=== PATIENT | female | born 1995 | race Caucasian/White ===

== ENCOUNTER 2023-09-19 17:02 | Emergency (ER) | payer MEDICAID ==
[2023-09-19 17:17] VITALS: RESP 18; TEMP 97.8
[2023-09-19] MEDS ORDERED: Sodium Chloride 0.9% 1000 ML 1,000 ML ONE (17:59)
[2023-09-19] MEDS: Sodium Chloride 0.9% 1000 ML 1,000 ML IV STA (18:00)
[2023-09-19 18:06] LABS: Absolute Neutrophil Ct (ANC) 6.53 x10^3/uL (1.4-6.9); BASOPHIL % 0.5 % (0.0-0.4); Basophil (Absolute #) 0.05 x10^3/uL (0-0.4); Eosinophil % 0.8 % (0.00-5.0); Eosinophil (Absolute #) 0.08 x10^3/uL (0-0.5); Hematocrit 38.1 % (35-47); Hemoglobin 12.9 g/dL (12.0-16.0); IMMATURE GRAN # 0.03 x10^3u/L (0.00-0.03); IMMATURE GRAN % 0.3 % (0.00-0.4); Lymphocyte (Absolute #) 2.11 x10^3/uL (1.0-4.6); Lymphocytes % 22.3 % (24.0-44.0); Mean Cell Volume 85.8 fL (78-100); Mean Corpuscular Hemoglobin 29.1 pg (26-32); Mean Corpuscular Hgb Concent. 33.9 g/dL (32-36); Mean Platelet Volume 10.2 fL (7.5-11.0); Monocyte (Absolute #) 0.65 x10^3/uL (0.0-1.3); Monocytes % 6.9 % (0.0-12.0); Neutrophil % 69.2 % (36.0-66.0); Platelet Count 254 x10^3/uL (150-450); Red Blood Count 4.44 x10^6/uL (4.1-5.4); Red Cell Distribution Width 11.7 % (11.5-14.0); White Blood Count 9.5 x10^3/uL (4.0-10.5)
[2023-09-19 18:13] LABS: Appearance Clear (Clear); Bacteria None Seen /HPF (None Seen); Bilirubin Negative (Negative); Blood Negative (Negative); Epithelial Cells Few /HPF (None Seen); Glucose, Urine Negative (Negative); Hyaline Casts NONE SEEN /LPF (0-2); Ketones Negative (Negative); Leukocyte Esterase Trace (Negative); Nitrite Negative (Negative); Ph 6.5 (4.6-8.0); Protein,Urine Dip Negative (Negative); RBC 0-2 /HPF (0-5); Urobilinogen 0.2 mg/dL (0.2)
[2023-09-19 18:14] LABS: ADD URINE CULTURE? NO (NO)
[2023-09-19 18:25] LABS: ANION GAP 10.3 MEQ/L (5-15); BILIRUBIN,TOTAL 0.7 mg/dL (0.2-1.3); Creatinine 1 0.62 mg/dL (0.52-1.04); EST GLOMERULAR FILTRATION RATE 125.9 ML/MIN; Potassium 3.4 mmol/L (3.5-5.1); Total Protein 7.9 g/dL (6.3-8.2)
--- NOTE | 2023-09-19 18:38 | ERPHSYRPT ---
- History of Present Illness Time Seen by Provider: 09/19/23 17:25 Historian: patient Exam Limitations: no limitations Patient Subjective Stated Complaint: pt here because she thinks she is dehydrated, co some nausea no vomiting, loose stools yesterday. able to eat and drink, Triage Nursing Assessment: pt alert, walked in, resp easy, skin w/d/p. moves all ext well, no edema noted, abd soft/flat. Physician History: Patient is a 27-year-old white female who presents with a complaint of generalized weakness for a few days. She is concerned that she would might be dehydrated she has had some nausea and reported to the physician but not the nurse -, some vomiting and diarrhea. Timing/Duration: day(s) (3) Activities at Onset: none Quality: cramping Abdominal Pain Onset Location: generalized abdomen Pain Radiation: no radiation Severity of Pain-Max: mild Severity of Pain-Current: none Modifying Factors: Improves With: nothing Associated Symptoms: diarrhea, nausea, vomiting Allergies/Adverse Reactions: No Known Drug Allergies Allergy (Unverified 09/19/23 17:17) Hx Influenza Vaccination/Date Given: No Hx Pneumococcal Vaccination/Date Given: No Immunizations Up to Date: Yes Travel Risk - International Travel Have you traveled outside of the country in past 3 weeks: No - Emerging Infectious Disease Are you exhibiting symptoms associated with any current EIDs: No - Review of Systems Constitutional: No Fever, No Chills Eyes: No Symptoms Ears, Nose, & Throat: No Symptoms Respiratory: No Cough, No Dyspnea Cardiac: No Chest Pain, No Edema, No Syncope Abdominal/Gastrointestinal: Nausea, Vomiting, Diarrhea, No Abdominal Pain Genitourinary Symptoms: No Dysuria Musculoskeletal: No Back Pain, No Neck Pain Skin: No Rash Neurological: No Dizziness, No Focal Weakness, No Sensory Changes Psychological: No Symptoms Endocrine: No Symptoms All Other Systems: Reviewed and Negative - Past Medical History Pertinent Past Medical History: No - Past Surgical History Past Surgical History: No - Female History Hx Last Menstrual Period: week ago Hx Now: No - Social History Smoking Status: Never smoker Exposure to second hand smoke: Yes (occ) Drug Use: marijuana - Nursing Vital Signs Nursing Vital Signs: Initial Vital Signs Temperature 97.8 F 09/19/23 17:16 Pulse Rate 90 09/19/23 17:16 Respiratory Rate 18 09/19/23 17:16 Blood Pressure 129/82 09/19/23 17:16 O2 Sat by Pulse Oximetry 98 09/19/23 17:16 Pain Scale Pain Intensity 0 - Physical Exam General Appearance: no apparent distress, alert Eye Exam: PERRL/EOMI, eyes nml inspection Ears, Nose, Throat Exam: normal ENT inspection, pharynx normal, moist mucous membranes Neck Exam: normal inspection, non-tender, supple, full range of motion Respiratory Exam: normal breath sounds, lungs clear, No respiratory distress Cardiovascular Exam: regular rate/rhythm, normal heart sounds Gastrointestinal/Abdomen Exam: soft, No tenderness, No mass Back Exam: normal inspection, normal range of motion, No CVA tenderness, No vertebral tenderness Extremity Exam: normal inspection, normal range of motion, pelvis stable Neurologic Exam: alert, oriented x 3, cooperative, normal mood/affect, nml cerebellar function, sensation nml, No motor deficits Skin Exam: normal color, warm, dry SpO2: 98 - Course Nursing assessment & vital signs reviewed: Yes Ordered Tests: Active Orders 24 hr Category Date Time Status CBC W DIFF Stat Lab 09/19/23 18:00 Completed CMP Stat Lab 09/19/23 18:00 Completed Lactic Acid Stat Lab 09/19/23 18:00 Completed UA W/RFX UR CULTURE Stat Lab 09/19/23 17:58 Completed Medication Summary Generic Name Dose Route Start Last Admin Trade Name Freq PRN Reason Stop Dose Admin Sodium Chloride 1,000 mls @ 999 mls/hr 09/19/23 17:52 09/19/23 18:00 Sodium Chloride 0.9% 1000 Ml IV 09/19/23 18:52 999 mls/hr .[id number] STA Administration Discontinued Medications Generic Name Dose Route Start Last Admin Trade Name Freq PRN Reason Stop Dose Admin Sodium Chloride Confirm 09/19/23 17:59 Sodium Chloride 0.9% 1000 Ml Administered 09/19/23 18:00 Dose 1,000 mls @ ud .ROUTE .STK-MED ONE Lab/Rad Data: Laboratory Result Diagrams 09/19/23 18:00 09/19/23 18:00 Laboratory Results 09/19/23 09/19/23 09/19/23 Range/Units 18:00 18:00 18:00 WBC 9.5 (4.0-10.5) x10^3/uL RBC 4.44 (4.1-5.4) x10^6/uL Hgb 12.9 (12.0-16.0) g/dL Hct 38.1 (35-47) % MCV 85.8 (78-100) fL MCH 29.1 (26-32) pg MCHC 33.9 (32-36) g/dL RDW 11.7 (11.5-14.0) % Plt Count 254 (150-450) x10^3/uL MPV 10.2 (7.5-11.0) fL Gran % 69.2 H (36.0-66.0) % Immature Gran % (Auto) 0.3 (0.00-0.4) % Nucleat RBC Rel Count 0.0 (0.00-0.1) % Eos # (Auto) 0.08 (0-0.5) x10^3/uL Immature Gran # (Auto) 0.03 (0.00-0.03) x10^3u/L Absolute Lymphs (auto) 2.11 (1.0-4.6) x10^3/uL Absolute Monos (auto) 0.65 (0.0-1.3) x10^3/uL Absolute Nucleated RBC 0.00 (0.00-0.01) x10^3u/L Lymphocytes % 22.3 L (24.0-44.0) % Monocytes % 6.9 (0.0-12.0) % Eosinophils % 0.8 (0.00-5.0) % Basophils % 0.5 (0.0-0.4) % Absolute Granulocytes 6.53 (1.4-6.9) x10^3/uL Basophils # 0.05 (0-0.4) x10^3/uL Sodium 138 (135-145) mmol/L Potassium 3.4 L (3.5-5.1) mmol/L Chloride 106 (98-107) mmol/L Carbon Dioxide 25 (22-30) mmol/L Anion Gap 10.3 (5-15) MEQ/L BUN 10 (7-17) mg/dL Creatinine 0.62 (0.52-1.04) mg/dL Estimated GFR 125.9 ML/MIN Glucose 94 (74-106) mg/dL Lactic Acid 0.9 (0.4-2.0) Calcium 9.0 (8.4-10.2) mg/dL Total Bilirubin 0.70 (0.2-1.3) mg/dL AST 23 (14-36) U/L ALT 19 (0-35) U/L Alkaline Phosphatase 85 (38-126) U/L Serum Total Protein 7.9 (6.3-8.2) g/dL Albumin 4.0 (3.5-5.0) g/dL Urine Color (Yellow) Urine Appearance (Clear) Urine pH (4.6-8.0) Ur Specific [place] (1.005-1.030) Urine Protein (Negative) Urine Glucose (UA) (Negative) mg/dL Urine Ketones (Negative) Urine Blood (Negative) Urine Nitrite (Negative) Urine Bilirubin (Negative) Urine Urobilinogen (0.2) mg/dL Ur Leukocyte Esterase (Negative) U Hyaline Cast (Auto) (0-2) /LPF Urine Microscopic RBC (0-5) /HPF Urine Microscopic WBC (0-5) /HPF Ur Epithelial Cells (None Seen) /HPF Urine Bacteria (None Seen) /HPF Urine Culture Reflexed (NO) 09/19/23 Range/Units 17:58 WBC (4.0-10.5) x10^3/uL RBC (4.1-5.4) x10^6/uL Hgb (12.0-16.0) g/dL Hct (35-47) % MCV (78-100) fL MCH (26-32) pg MCHC (32-36) g/dL RDW (11.5-14.0) % Plt Count (150-450) x10^3/uL MPV (7.5-11.0) fL Gran % (36.0-66.0) % Immature Gran % (Auto) (0.00-0.4) % Nucleat RBC Rel Count (0.00-0.1) % Eos # (Auto) (0-0.5) x10^3/uL Immature Gran # (Auto) (0.00-0.03) x10^3u/L Absolute Lymphs (auto) (1.0-4.6) x10^3/uL Absolute Monos (auto) (0.0-1.3) x10^3/uL Absolute Nucleated RBC (0.00-0.01) x10^3u/L Lymphocytes % (24.0-44.0) % Monocytes % (0.0-12.0) % Eosinophils % (0.00-5.0) % Basophils % (0.0-0.4) % Absolute Granulocytes (1.4-6.9) x10^3/uL Basophils # (0-0.4) x10^3/uL Sodium (135-145) mmol/L Potassium (3.5-5.1) mmol/L Chloride (98-107) mmol/L Carbon Dioxide (22-30) mmol/L Anion Gap (5-15) MEQ/L BUN (7-17) mg/dL Creatinine (0.52-1.04) mg/dL Estimated GFR ML/MIN Glucose (74-106) mg/dL Lactic Acid (0.4-2.0) Calcium (8.4-10.2) mg/dL Total Bilirubin (0.2-1.3) mg/dL AST (14-36) U/L ALT (0-35) U/L Alkaline Phosphatase (38-126) U/L Serum Total Protein (6.3-8.2) g/dL Albumin (3.5-5.0) g/dL Urine Color Yellow (Yellow) Urine Appearance Clear (Clear) Urine pH 6.5 (4.6-8.0) Ur Specific [place] 1.010 (1.005-1.030) Urine Protein Negative (Negative) Urine Glucose (UA) Negative (Negative) mg/dL Urine Ketones Negative (Negative) Urine Blood Negative (Negative) Urine Nitrite Negative (Negative) Urine Bilirubin Negative (Negative) Urine Urobilinogen 0.2 (0.2) mg/dL Ur Leukocyte Esterase Trace A (Negative) U Hyaline Cast (Auto) NONE SEEN (0-2) /LPF Urine Microscopic RBC 0-2 (0-5) /HPF Urine Microscopic WBC 3-5 (0-5) /HPF Ur Epithelial Cells Few (None Seen) /HPF Urine Bacteria None Seen (None Seen) /HPF Urine Culture Reflexed NO (NO) - Progress Progress: improved Medical Desision Making - Diagnostic Testing Diagnostic test were ordered, analyzed, and reviewed by me: Yes - Risk of complications Minimal Risk: Minimal risk of morbidity - Departure Departure Disposition: Home Clinical Impression: Gastroenteritis Condition: Stable Critical Care Time: No Referrals: ROMY SOTO, SKI MAKER WOOD [Primary Care Provider] - Follow up/PCP as directed Instructions: Viral gastroenteritis in adults Prescriptions: Ondansetron ODT 4 MG [Zofran Odt 4 mg] 4 mg PO Q6H PRN PRN #10 tablet PRN Reason: Vomiting
[2023-09-19 19:15] VITALS: BP 120/84; PULSE 73; O2SAT 100
== END 2023-09-19 19:08 | disposition home or self-care (01) ==
LOC: ED 17:02
DX: K52.9 Noninfective gastroenteritis and colitis, unspecified (principal); R53.1 Weakness; R11.2 Nausea with vomiting, unspecified
CPT/HCPCS: 36000; 36415; 80053; 81001; 83605; 85025; 99283

== ENCOUNTER 2023-10-14 10:32 | Emergency (ER) | payer MEDICAID ==
--- NOTE | 2023-10-14 10:33 | ERPHSYRPT ---
- History of Present Illness Time Seen by Provider: 10/14/23 10:33 Source: patient Exam Limitations: no limitations Physician History: This is a right-handed 27-year-old white female patient who bit the skin off around her right fingernail and in the last couple days she noticed some redness and tenderness present. Patient stated that the area around her nail "drained a little" yesterday. She noted this no acute trauma or direct injury to her finger. Occurred: days ago Method of Injury: other (Couple of days ago patient bit the skin around her right ring fingernail) Severity of Pain-Max: mild Severity of Pain-Current: mild Extremities Pain Location: 4th finger: right Associated Symptoms: none Allergies/Adverse Reactions: No Known Drug Allergies Allergy (Verified 10/14/23 10:44) Home Medications: Norethindrone-E.estradiol-Iron [Neeru Fe 1-20 Tablet] 1 each PO DAILY 10/14/23 [History] Hx Influenza Vaccination/Date Given: No Hx Pneumococcal Vaccination/Date Given: No Travel Risk - International Travel Have you traveled outside of the country in past 3 weeks: No - Emerging Infectious Disease Are you exhibiting symptoms associated with any current EIDs: No - Review of Systems Constitutional: No Symptoms Eyes: No Symptoms Ears, Nose, & Throat: No Symptoms Respiratory: No Symptoms Cardiac: No Symptoms Abdominal/Gastrointestinal: No Symptoms Genitourinary Symptoms: No Symptoms Musculoskeletal: No Symptoms Skin: Other (Mild redness and tenderness around the finger nail of right fourth) Psychological: No Symptoms Endocrine: No Symptoms Hematologic/Lymphatic: No Symptoms Immunological/Allergic: No Symptoms All Other Systems: Reviewed and Negative - Past Medical History Pertinent Past Medical History: No - Past Surgical History Past Surgical History: No - Social History Smoking Status: Never smoker Exposure [facility]: [facility] ([facility]) Drug Use: marijuana - Nursing Vital Signs Nursing Vital Signs: Initial Vital Signs Temperature 98 F 10/14/23 10:39 Pulse Rate 107 H 10/14/23 10:39 Blood Pressure 106/88 10/14/23 10:39 O2 Sat by Pulse Oximetry 96 10/14/23 10:39 Pain Scale Pain Intensity 4 - Physical Exam General Appearance: no apparent distress, alert, anxiety Eyes, Ears, Nose, Throat Exam: normal ENT inspection, moist mucous membranes Neck Exam: normal inspection, non-tender, supple, full range of motion Cardiovascular/Respiratory Exam: chest non-tender, no respiratory distress Abdominal Exam: non-tender Back Exam: normal inspection, normal range of motion, No CVA tenderness, No vertebral tenderness Shoulder Exam: normal inspection, non-tender, no evidence of injury, normal ROM Elbow/Forearm Exam: normal inspection, non-tender, no evidence of injury, normal ROM Wrist Exam: normal inspection, non-tender, no evidence of injury, normal ROM Hand Exam: soft tissue tenderness (Around the fourth digit fingernail of the right hand. No pus, no abscess. No proximal cellulitis) Neuro/Tendon Exam: normal sensation, normal motor functions, normal tendon functions, responds to pain, no evidence tendon injury Skin Exam: warm, dry, other SpO2 Interpretation: normal O2 Delivery: Room Air - Course Nursing assessment & vital signs reviewed: Yes - Progress Progress: unchanged Progress Note: 10/14/23 11:07 My medical decision making and the assignment of low complexity to this patient's medical issue today is based on review of the patient's past medical history, review of the patient's medication list, review the patient drug allergy list, history present illness and physical findings on examination. The workup in this patient does not require laboratory radiographic studies. Differential diagnosis includes early cellulitis Counseled pt/family regarding: diagnosis, need for follow-up Medical Desision Making - Diagnostic Testing Diagnostic test were ordered, analyzed, and reviewed by me: No - Risk of complications The pt has a mod risk of morbidity or mortality based on: Need for prescription drug management - Departure Departure Disposition: Home Clinical Impression: Paronychia of finger Condition: Stable Critical Care Time: No Referrals: ROMY SOTO [facility] [Primary Care Provider] - Follow up/PCP as directed Additional Instructions: Soak your finger in warm Epsom salts or warm soapy water 2-3 times a day. Take your antibiotics as prescribed with food. Use Tylenol and ibuprofen for pain control. Prescriptions: Amoxicillin/Potassium Clav [Augmentin 500-125 Tablet] 1 each PO TID 7 Days #21 tablet
[2023-10-14 10:44] VITALS: BP 106/88; PULSE 107; TEMP 98; O2SAT 96
== END 2023-10-14 11:21 | disposition home or self-care (01) ==
LOC: ED 10:32
DX: L03.011 Cellulitis of right finger (principal)
CPT/HCPCS: 99281

== ENCOUNTER 2024-01-08 16:01 | Emergency (ER) | payer MEDICAID ==
--- NOTE | 2024-01-08 16:39 | ERPHSYRPT ---
- History of Present Illness Time Seen by Provider: 01/08/24 16:38 Source: patient Exam Limitations: no limitations Physician History: 1 day hx of cough, congestion and sore throat. Child has been ill for 2 days prior. Temp of 100 CAN PILER. Cough non productive. Facial pain reported. No SOB. No CP. No otc trialed. Timing/Duration: today Cough Quality/Degree: mild, dry cough Possible Cause: no prior episodes Modifying Factors: Worsens With: coughing Associated Symptoms: fever, chills, cough, earache, facial pain, nasal congestion, nasal drainage, No chest pain/soreness Allergies/Adverse Reactions: No Known Drug Allergies Allergy (Verified 01/08/24 16:34) Home Medications: Norethindrone-E.estradiol-Iron [Neeru Fe 1-20 Tablet] 1 each PO DAILY 10/14/23 [History] Hx Influenza Vaccination/Date Given: No Hx Pneumococcal Vaccination/Date Given: No Travel Risk - Emerging Infectious Disease Are you exhibiting symptoms associated with any current EIDs: No - Review of Systems All Other Systems: Reviewed and Negative - Past Medical History Pertinent Past Medical History: No - Past Surgical History Past Surgical History: No Female Surgical History: Tubal Ligation - Social History Smoking Status: Never smoker Exposure to second hand smoke: Yes (occ) Drug Use: marijuana - Social Determinants of Health Will the patient participate in the screening: Yes Do you worry about a steady place to live?: No In the past 12 months,have you had to go without utilities?: No Transportation Issues: No Has anyone in your support network made you feel unsafe?: No Have you or anyone in your house had to go without enough: No - Nursing Vital Signs Nursing Vital Signs: Initial Vital Signs Temperature 99.7 F 01/08/24 16:20 Pulse Rate 108 H 01/08/24 16:20 Respiratory Rate 20 01/08/24 16:20 Blood Pressure 118/73 01/08/24 16:20 O2 Sat by Pulse Oximetry 98 01/08/24 16:20 Pain Scale Pain Intensity 5 - Physical Exam General Appearance: no apparent distress Ears, Nose, Throat Exam: TMs normal, pharyngeal erythema, No tonsillar exudate Neck Exam: normal inspection, non-tender, supple, full range of motion Respiratory Exam: normal breath sounds, lungs clear, No respiratory distress Cardiovascular Exam: regular rate/rhythm, capillary refill <2 sec Neurologic Exam: alert, oriented x 3, cooperative Skin Exam: normal color, warm, dry SpO2 Interpretation: normal O2 Delivery: Room Air - Course Nursing assessment & vital signs reviewed: Yes Lab/Rad Data: Laboratory Results 01/08/24 Range/Units 16:30 Influenza Type A Ag NEGATIVE (NEGATIVE) Influenza Type B Ag NEGATIVE (NEGATIVE) RSV (PCR) NEGATIVE (NEGATIVE) SARS-CoV-2 (PCR) POSITIVE A (NEGATIVE) Group A Strep Antibody NOT DETECTED (NEGATIVE) - Progress Progress: improved Air Movement: good Progress Note: Patient COVID positive. No indications for Paxlovid at this time. No need for abx. Blood Culture(s) Obtained: No Antibiotics given: No Counseled pt/family regarding: lab results, diagnosis, need for follow-up, rad results Medical Desision Making - Diagnostic Testing Diagnostic test were ordered, analyzed, and reviewed by me: Yes Radiological Interpretation: Interpreted by me - Risk of complications Low Risk: Low risk of morbidity from additional dx testing or treatment - Departure Departure Disposition: Home Clinical Impression: COVID-19 Condition: Good Critical Care Time: No Referrals: ROMY SOTO NP [Primary Care Provider] - Follow up/PCP as directed Instructions: COVID-19 ED
[2024-01-08 16:43] VITALS: RESP 20; TEMP 99.7; O2SAT 98
[2024-01-08 16:59] LABS: Group A Strep NOT DETECTED (NEGATIVE)
[2024-01-08 17:14] LABS: INFLUENZA A NEGATIVE (NEGATIVE); INFLUENZA B NEGATIVE (NEGATIVE); RESPIRATORY SYNCTIAL VIRUS NEGATIVE (NEGATIVE)
[2024-01-08 17:19] LABS: SARS-CoV-2 Xpert Express POSITIVE (NEGATIVE)
[2024-01-08 17:27] VITALS: BP 116/70; PULSE 100
== END 2024-01-08 17:43 | disposition home or self-care (01) ==
LOC: ED 16:01
DX: U07.1 COVID-19 (principal); J02.9 Acute pharyngitis, unspecified; R05.1 Acute cough; R50.9 Fever, unspecified
CPT/HCPCS: 0241U; 87651; 99282